=== PATIENT | female | born 1990 | race Caucasian/White ===

== ENCOUNTER 2019-02-18 21:35 | Emergency (ER) | payer MEDICAID ==
[~2019-02-18] VITALS: Ht 157.5 cm; Wt 72.6 kg
[2019-02-18 21:40] VITALS: BP 130/81
--- NOTE | 2019-02-18 21:44 | NUR ---
TO LOBBY A/W BED, CHUN AHMILTON NOTED
--- NOTE | 2019-02-18 23:12 | NUR ---
PT AMBULATED TO BED 5 UNDER OWN POWER @ [id number]
--- NOTE | 2019-02-18 23:23 | NUR ---
Patient being evaluated by physician at bedside.
[2019-02-18] MEDS ORDERED: IBUPROFEN 800 MG TAB PO ONE (23:30)
--- NOTE | 2019-02-18 23:36 | NUR ---
BIB SELF WITH C/O COUGH X 1 WEEK. STATES SHE IS COUGHING UP "A LOT OF CHUNKY STUFF". STATES IT RANGES FROM [place]IRBY TO GREEN IN COLOR. ALSO STATES SHE HAS TWO LOWER MOLARS, ONE ON EACH SIDE, THAT ARE DECAYING. STATES IT HAS BEEN GOING ON FOR "A WHILE" AND THAT SHE SMOKES WEED TO CONTROL THE PAIN. HAS NOT SEEN A DENTIST.
[2019-02-18 23:55] VITALS: BP 130/81
--- NOTE | 2019-02-18 23:55 | NUR ---
Patient discharged with v/s stable. Written and verbal after care instructions given and explained. Patient alert, oriented and verbalized understanding of instructions. Ambulatory with steady gait. All questions addressed prior to discharge. ID band removed. Patient advised to follow up with PMD. Rx of AMOXICILLIN, PROMETHAZINE, MORTIN, TRAMADOL given. Patient educated on indication of medication including possible reaction and side effects. Opportunity to ask questions provided and answered.
== END 2019-02-18 23:49 | disposition home or self-care (01) ==
LOC: MED 21:35
DX: K04.7 Periapical abscess without sinus (principal); R05 Cough; F17.210 Nicotine dependence, cigarettes, uncomplicated
CPT/HCPCS: 71045; 99283